=== PATIENT | male | born 1985 | race American Indian/Alaskan Native ===

== ENCOUNTER 2019-05-09 15:10 | Emergency (ER) | payer OTHER ==
[2019-05-09 17:09] LABS: Bilirubin,Urine NEG (Negative); Blood,Urine SM (Negative); Color,Urine Amber (Yellow); Mucus,Urine 3+ /HPF
--- NOTE | 2019-05-09 17:16 | Emergency Department Report ---
HPI - General Chief Complaint: Psych Time Seen by Provider: 05/09/19 16:59 - HPI HPI: Room 11 The patient is a 33-year-old male presenting with a chief complaint suicidal ideation. The patient states he's been suicidal for 3 months. The patient states she has chronic cocaine addiction and this plays into his suicidal ideation. The patient states his plan was to run into traffic. Patient denies any active attempt at harming himself Location: Mental state Duration: [See above] Quality: [See above] Severity: [See above] Modifying factors: [see above] Context: [see above] Mode of transportation: [not driving] ED Past Medical Hx - Past Medical History Previous Medical History?: Yes Hx Psychiatric Treatment: (Depression) Additional medical history: PTSD, Herpes, Hernia - Surgical History Hx Appendectomy: Yes - Family History Family history: no significant - Social History Smoking Status: Current Every Day Smoker Substance Use Type: Alcohol, Cocaine, Marijuana ED Review of Systems ROS: Stated complaint: SI Other details as noted in HPI Constitutional: no symptoms reported Eyes: denies: eye pain ENT: denies: throat pain Respiratory: no symptoms reported Cardiovascular: denies: chest pain Endocrine: no symptoms reported Gastrointestinal: denies: abdominal pain Genitourinary: denies: dysuria Musculoskeletal: denies: back pain Neurological: denies: headache Psychiatric: suicidal thoughts Physical Exam - Physical Exam Vital Signs: Vital Signs 05/09/19 15:45 Temperature 97.6 F Pulse Rate 71 Respiratory 16 Rate Blood Pressure 101/61 O2 Sat by Pulse 99 Oximetry Physical Exam: GENERAL: The patient is well-developed well-nourished male lying on stretcher not appearing to be in acute distress. [] HEENT: Normocephalic. Atraumatic. Extraocular motions are intact. Patient has moist mucous membranes. NECK: Supple. Trachea midline CHEST/LUNGS: Clear to auscultation. There is no respiratory distress noted. HEART/CARDIOVASCULAR: Regular. There is no tachycardia. There is no gallop rub or murmur. ABDOMEN: Abdomen is soft, nontender. Patient has normal bowel sounds. There is no abdominal distention. SKIN: There is no rash. There is no edema. There is no diaphoresis. NEURO: The patient is awake, alert, and oriented. The patient is cooperative. The patient has normal speech MUSCULOSKELETAL: There is no evidence of acute injury. ED Course Vital Signs 05/09/19 15:45 Temperature 97.6 F Pulse Rate 71 Respiratory 16 Rate Blood Pressure 101/61 O2 Sat by Pulse 99 Oximetry ED Medical Decision Making - Lab Data Result diagrams: 05/09/19 17:09 05/09/19 17:09 Laboratory Tests 05/09/19 05/09/19 05/09/19 16:30 16:30 17:09 WBC RBC Hgb Hct MCV MCH MCHC RDW Plt Count Add Manual Diff Total Counted Seg Neuts % (Manual) Band Neutrophils % Lymphocytes % (Manual) Reactive Lymphs % (Man) Monocytes % (Manual) Eosinophils % (Manual) Basophils % (Manual) Metamyelocytes % Myelocytes % Promyelocytes % Blast Cells % Nucleated RBC % Seg Neutrophils # Man Band Neutrophils # Lymphocytes # (Manual) Abs React Lymphs (Man) Monocytes # (Manual) Eosinophils # (Manual) Basophils # (Manual) Metamyelocytes # Myelocytes # Promyelocytes # Blast Cells # WBC Morphology Hypersegmented Neuts Hyposegmented Neuts Hypogranular Neuts Smudge Cells Toxic Granulation Toxic Vacuolation Dohle Bodies Pelger-Huet Anomaly Barry Rods Platelet Estimate Clumped Platelets Plt Clumps, EDTA Large Platelets Giant Platelets Platelet Satelliting Plt Morphology Comment RBC Morphology Dimorphic RBCs Polychromasia Hypochromasia Poikilocytosis Anisocytosis Microcytosis Macrocytosis Spherocytes Pappenheimer Bodies Sickle Cells Target Cells Tear Drop Cells Ovalocytes Helmet Cells [place] Bodies Uledi Rings [place] Cells Bite Cells Crenated Cell Elliptocytes Acanthocytes (Spur) Rouleaux Hemoglobin C Crystals Schistocytes Malaria parasites Dhaval Bodies Hem Pathologist Commnt Sodium Potassium Chloride Carbon Dioxide Anion Gap BUN Creatinine Estimated GFR BUN/Creatinine Ratio Glucose Calcium Urine Color Lesley Urine Turbidity Slightly-cloudy Urine pH 5.0 Ur Specific [place] 1.040 H Urine Protein 30 mg/dl Urine Glucose (UA) Neg Urine Ketones Tr Urine Blood Sm Urine Nitrite Neg Urine Bilirubin Neg Urine Urobilinogen 2.0 Ur Leukocyte Esterase Neg Urine WBC (Auto) 10.0 H Urine RBC (Auto) 11.0 Urine Mucus 3+ Salicylates < 0.3 L Urine Opiates Screen Presumptive negative Urine Methadone Screen Presumptive negative Acetaminophen Ur Barbiturates Screen Presumptive negative Ur Phencyclidine Scrn Presumptive negative Ur Amphetamines Screen Presumptive negative U Benzodiazepines Scrn Presumptive negative Urine Cocaine Screen Presumptive positive U Marijuana (THC) Screen Presumptive positive Drugs of Abuse Note Disclamer Plasma/Serum Alcohol 05/09/19 05/09/19 05/09/19 17:09 17:09 17:09 WBC RBC Hgb Hct MCV MCH MCHC RDW Plt Count Add Manual Diff Total Counted Seg Neuts % (Manual) Band Neutrophils % Lymphocytes % (Manual) Reactive Lymphs % (Man) Monocytes % (Manual) Eosinophils % (Manual) Basophils % (Manual) Metamyelocytes % Myelocytes % Promyelocytes % Blast Cells % Nucleated RBC % Seg Neutrophils # Man Band Neutrophils # Lymphocytes # (Manual) Abs React Lymphs (Man) Monocytes # (Manual) Eosinophils # (Manual) Basophils # (Manual) Metamyelocytes # Myelocytes # Promyelocytes # Blast Cells # WBC Morphology Hypersegmented Neuts Hyposegmented Neuts Hypogranular Neuts Smudge Cells Toxic Granulation Toxic Vacuolation Dohle Bodies Pelger-Huet Anomaly Barry Rods Platelet Estimate Clumped Platelets Plt Clumps, EDTA Large Platelets Giant Platelets Platelet Satelliting Plt Morphology Comment RBC Morphology Dimorphic RBCs Polychromasia Hypochromasia Poikilocytosis Anisocytosis Microcytosis Macrocytosis Spherocytes Pappenheimer Bodies Sickle Cells Target Cells Tear Drop Cells Ovalocytes Helmet Cells [place] Bodies Uledi Rings [place] Cells Bite Cells Crenated Cell Elliptocytes Acanthocytes (Spur) Rouleaux Hemoglobin C Crystals Schistocytes Malaria parasites Dhaval Bodies Hem Pathologist Commnt Sodium 139 Potassium 4.1 Chloride 102.0 Carbon Dioxide 27 Anion Gap 14 BUN 14 Creatinine 1.3 Estimated GFR > 60 BUN/Creatinine Ratio 11 Glucose 100 Calcium 9.2 Urine Color Urine Turbidity Urine pH Ur Specific [place] Urine Protein Urine Glucose (UA) Urine Ketones Urine Blood Urine Nitrite Urine Bilirubin Urine Urobilinogen Ur Leukocyte Esterase Urine WBC (Auto) Urine RBC (Auto) Urine Mucus Salicylates Urine Opiates Screen Urine Methadone Screen Acetaminophen < 5.0 L Ur Barbiturates Screen Ur Phencyclidine Scrn Ur Amphetamines Screen U Benzodiazepines Scrn Urine Cocaine Screen U Marijuana (THC) Screen Drugs of Abuse Note Plasma/Serum Alcohol < 0.01 05/09/19 17:09 WBC 4.0 L RBC 4.35 Hgb 13.8 Hct 40.0 MCV 92 MCH 32 MCHC 35 H RDW 13.6 Plt Count 212 Add Manual Diff Complete Total Counted 100 Seg Neuts % (Manual) 42.0 Band Neutrophils % 0 Lymphocytes % (Manual) 44.0 H Reactive Lymphs % (Man) 0 Monocytes % (Manual) 12.0 H Eosinophils % (Manual) 2.0 Basophils % (Manual) 0 Metamyelocytes % 0 Myelocytes % 0 Promyelocytes % 0 Blast Cells % 0 Nucleated RBC % Not Reportable Seg Neutrophils # Man 1.7 L Band Neutrophils # 0.0 Lymphocytes # (Manual) 1.8 Abs React Lymphs (Man) 0.0 Monocytes # (Manual) 0.5 Eosinophils # (Manual) 0.1 Basophils # (Manual) 0.0 Metamyelocytes # 0.0 Myelocytes # 0.0 Promyelocytes # 0.0 Blast Cells # 0.0 WBC Morphology Not Reportable Hypersegmented Neuts Not Reportable Hyposegmented Neuts Not Reportable Hypogranular Neuts Not Reportable Smudge Cells Not Reportable Toxic Granulation Not Reportable Toxic Vacuolation Not Reportable Dohle Bodies Not Reportable Pelger-Huet Anomaly Not Reportable Barry Rods Not Reportable Platelet Estimate Consistent w auto Clumped Platelets Not Reportable Plt Clumps, EDTA Not Reportable Large Platelets Not Reportable Giant Platelets Not Reportable Platelet Satelliting Not Reportable Plt Morphology Comment Not Reportable RBC Morphology Normal Dimorphic RBCs Not Reportable Polychromasia Not Reportable Hypochromasia Not Reportable Poikilocytosis Not Reportable Anisocytosis Not Reportable Microcytosis Not Reportable Macrocytosis Not Reportable Spherocytes Not Reportable Pappenheimer Bodies Not Reportable Sickle Cells Not Reportable Target Cells Not Reportable Tear Drop Cells Not Reportable Ovalocytes Not Reportable Helmet Cells Not Reportable [place] Bodies Not Reportable Uledi Rings Not Reportable [place] Cells Not Reportable Bite Cells Not Reportable Crenated Cell Not Reportable Elliptocytes Not Reportable Acanthocytes (Spur) Not Reportable Rouleaux Not Reportable Hemoglobin C Crystals Not Reportable Schistocytes Not Reportable Malaria parasites Not Reportable Dhaval Bodies Not Reportable Hem Pathologist Commnt No Sodium Potassium Chloride Carbon Dioxide Anion Gap BUN Creatinine Estimated GFR BUN/Creatinine Ratio Glucose Calcium Urine Color Urine Turbidity Urine pH Ur Specific [place] Urine Protein Urine Glucose (UA) Urine Ketones Urine Blood Urine Nitrite Urine Bilirubin Urine Urobilinogen Ur Leukocyte Esterase Urine WBC (Auto) Urine RBC (Auto) Urine Mucus Salicylates Urine Opiates Screen Urine Methadone Screen Acetaminophen Ur Barbiturates Screen Ur Phencyclidine Scrn Ur Amphetamines Screen U Benzodiazepines Scrn Urine Cocaine Screen U Marijuana (THC) Screen Drugs of Abuse Note Plasma/Serum Alcohol - Differential Diagnosis suicidal ideation, depression Critical care attestation.: If time is entered above; I have spent that time in minutes in the direct care of this critically ill patient, excluding procedure time. ED Disposition Clinical Impression: Suicidal ideation, UTI (urinary tract infection) Disposition: DC/TX-65 PSY HOSP/PSY UNIT Is pt being admited?: No Does the pt Need Aspirin: No Condition: Serious Referrals: MANSOOR MOREIRA MD [Primary Care Provider] - 3-5 Days Time of Disposition: 00:22 (awaiting acceptance)
[2019-05-09 17:24] LABS: Amphetamine Screen,Urine PRESUMPTIVE NEGATIVE; Benzodiazepines Screen,Urine PRESUMPTIVE NEGATIVE; Methadone Screen,Urine PRESUMPTIVE NEGATIVE; Opiate Screen,Urine PRESUMPTIVE NEGATIVE
[2019-05-09 17:30] LABS: Hemoglobin 13.8 gm/dl (11.8-15.2); Mean Corpuscular HGB Conc 35 % (32-34); Mean Corpuscular Volume 92 fl (84-94); Platelet Count 212 K/mm3 (140-440); Red Blood Count 4.35 M/mm3 (3.65-5.03); Red Cell Distribution Width 13.6 % (13.2-15.2)
[2019-05-09 17:36] LABS: Cannabinoid Screen,Urine PRESUMPTIVE POSITIVE; Cocaine Screen,Urine PRESUMPTIVE POSITIVE
[2019-05-09 17:46] LABS: BUN/Creatinine Ratio 11; Blood Urea Nitrogen 14 mg/dL (9-20); Calcium 9.2 mg/dL (8.4-10.2); Hemolysis Index 10
[2019-05-09 18:12] LABS: Basophils % (Manual) 0 % (0.0-1.8); Total Cells Counted 100
[2019-05-09 18:13] LABS: Platelet Estimate Consistent w Auto; RBC Morphology Normal
--- NOTE | 2019-05-10 11:05 | Consultation ---
History of Present Illness - Reason for Consult Consult date: 05/10/19 Reason for consult: Mental Health Evaluation Requesting physician: MALI AWAN - Chief Complaint Chief complaint: "I want to stop using drugs" - History of Present Psychiatric Illness 33 y.o. AA male who presented to the ER for SI's and drug addiction. Today the patient was calm and cooperative during the assessment. He stated that his drug addiction is "overwhelming." He stated that he cannot not stop "using" so he's feel suicidal without a plan. He stated two suicide attempts in the pas. He rate his depression 6/10, with 10 being the worse. He stated that he took several different types of antidepressants while incarcerated. He denies HI's and AVH's. He denies a poor appetite, but acknowledged erratic sleep. He denies alcohol consumption (etoh). Medications and Allergies Allergies Allergy/AdvReac Type Severity Reaction Status Date / Time No Known Allergies Allergy Verified 05/09/19 22:19 Active Meds: Active Medications Levofloxacin (Levaquin) 250 mg PO QDAY SHELLY Stop: 05/13/19 10:00 Mirtazapine (Remeron) 15 mg PO HS [facility] Past psychiatric history - Past Medical History Past Medical History: No medical history Past Surgical History: No surgical history - past Psychiatric treatment and history psychiatric treatment history: Hx of depression/substance abuse. Denies a fam psy hx. - Social History Social history: lives with family Mental Status Exam - Vital signs Last Vital Signs Temp 98.0 F 05/10/19 07:57 Pulse 74 05/10/19 07:57 Resp 18 05/10/19 07:57 BP 105/74 05/10/19 07:57 Pulse Ox 100 05/10/19 07:57 - Exam Narrative exam: MSE: Appearance: calm, cooperative Behavior: poor eye contact Speech: regular rate and tone Mood: "depressed" Affect: congruent o mood Thought Process: circumstantial Thought Content: denies HI's and AVH's Motor Activity: ambulatory Cognition: A/O x3 Insight: variable Judgment: poor Results Result Diagrams: 05/09/19 17:09 05/09/19 17:09 Abnormal lab results 05/09/19 05/09/19 05/09/19 Range/Units 16:30 17:09 17:09 WBC (4.5-11.0) K/mm3 MCHC (32-34) % Lymphocytes % (Manual) (13.4-35.0) % Monocytes % (Manual) (0.0-7.3) % Seg Neutrophils # Man (1.8-7.7) K/mm3 Ur Specific [place] 1.040 H (1.003-1.030) Urine WBC (Auto) 10.0 H (0.0-6.0) /HPF Salicylates < 0.3 L (2.8-20.0) mg/dL Acetaminophen < 5.0 L (10.0-30.0) ug/mL 05/09/19 Range/Units 17:09 WBC 4.0 L (4.5-11.0) K/mm3 MCHC 35 H (32-34) % Lymphocytes % (Manual) 44.0 H (13.4-35.0) % Monocytes % (Manual) 12.0 H (0.0-7.3) % Seg Neutrophils # Man 1.7 L (1.8-7.7) K/mm3 Ur Specific [place] (1.003-1.030) Urine WBC (Auto) (0.0-6.0) /HPF Salicylates (2.8-20.0) mg/dL Acetaminophen (10.0-30.0) ug/mL All other labs normal. Assessment and Plan Assessment and plan: Impression: MDD, Severe type. Substance Use DO (cocaine). Cannabis Use Do. Today the patient was calm and cooperative during the assessment. The patient endorsed SI's without a plan. DDx: Substance Induced Mood DO Recommendation/Plan: Continue 1013 and start Remeron 15 mg PO HS for depression. Discussed possible suicidality/medication induced yumiko with the patient, he verbalized understanding. Dispo: The patient was referred to inpatient psy services. Will staff with Dr. Carla Ibrahim.
[2019-05-10] MEDS: LEVAQUIN PO SCH (11:30)
[2019-05-10] MEDS: REMERON PO SCH (22:36)
[2019-05-11] MEDS: LEVAQUIN PO SCH (11:24)
--- NOTE | 2019-05-11 12:26 | Progress Note ---
Subjective - Reason for Consult Consult date: 05/11/19 Reason for consult: Psychiatry Follow-up - Chief Complaint Chief complaint: "It's been a lot" 33 y.o. AA male who presented to the ER for SI's and drug addiction. Today the patient was calm and cooperative during the assessment. He stated that he got some rest last night, but still feel depressed. He stated he must stop using drugs so his life can get better. He would not confirm or deny SI's when asked./ He denies HI's and AVH's. He denies any side effects of his medication. Mental Status Exam - Vital signs Last Vital Signs Temp 98.6 F 05/11/19 10:29 Pulse 74 05/11/19 10:29 Resp 18 05/11/19 10:29 BP 122/85 05/11/19 10:29 Pulse Ox 98 05/11/19 10:29 - Exam Narrative exam: MSE: Appearance: calm, cooperative Behavior:regular eye contact Speech: regular rate and tone Mood: "still depressed" Affect: congruent o mood Thought Process: circumstantial Thought Content: denies HI's and AVH's Motor Activity: ambulatory Cognition: A/O x3 Insight: fair Judgment: variable to fair Assessment and Plan Impression: MDD, Severe type. Substance Use DO (cocaine). Cannabis Use DO. Today the patient was calm and cooperative during the assessment. DDx: Substance Induced Mood DO Recommendation/Plan: Continue 1013 and Remeron 15 mg PO HS for depression. Discussed possible suicidality/medication induced yumiko with the patient, he verbalized understanding. Dispo: The patient was referred to inpatient psy services. Will staff with Dr. Carla Ibrahim.
[2019-05-11] MEDS: REMERON PO SCH (23:05)
--- NOTE | 2019-05-12 11:00 | Progress Note ---
Subjective - Reason for Consult Consult date: 05/12/19 Reason for consult: Psychiatry Following - Chief Complaint Chief complaint: "It's worried" 33 y.o. AA male who presented to the ER for SI's and drug addiction. Today the patient was calm and cooperative during the assessment. There's not much change to the patient's presentation. He did state that he is worried about the next step in his life once he's discharged or transferred to a mental health facility. He still would not confirm or deny SI's when asked. He denies HI's and AVH's. He denies any side effects of his medication. Mental Status Exam - Vital signs Last Vital Signs Temp 97.3 F L 05/12/19 03:14 Pulse 64 05/12/19 03:14 Resp 16 05/12/19 03:14 BP 94/52 05/12/19 03:14 Pulse Ox 98 05/12/19 03:14 - Exam Narrative exam: MSE: Appearance: calm, cooperative Behavior:regular eye contact Speech: regular rate and tone Mood: "worried" Affect: flat Thought Process: circumstantial Thought Content: denies HI's and AVH's Motor Activity: ambulatory Cognition: A/O x3 Insight: fair Judgment: variable Assessment and Plan Impression: MDD, Severe type. Substance Use DO (cocaine). Cannabis Use DO. Today the patient was calm and cooperative during the assessment. DDx: Substance Induced Mood DO Recommendation/Plan: Continue 1013 and Remeron 15 mg PO HS for depression. Discussed possible suicidality/medication induced yumiko with the patient, he verbalized understanding. Dispo: The patient was referred to inpatient psy services. Will staff with Dr. Carla Ibrahim.
[2019-05-12] MEDS: LEVAQUIN PO SCH (13:27)
[2019-05-12] MEDS: REMERON PO SCH (22:09)
[2019-05-13 07:54] VITALS: BP 97/64
== END 2019-05-13 09:56 ==
LOC: EEVIPCON 15:10 → ED 15:10
DX: F32.89 Other specified depressive episodes (principal); F14.10 Cocaine abuse, uncomplicated
CPT/HCPCS: 36415; 80048; 80307; 81001; 85007; 85025; 87086; 99285; G0480; 80320